=== PATIENT | female | born 2000 | race Caucasian/White ===

== ENCOUNTER 2023-12-09 13:47 | Outpatient (CLI) | payer BC, SELFPAY ==
--- NOTE | 2023-12-09 14:00 | CRLHL7_ITS ---
For Patients: As a result of the Century Cures Act, medical imaging exams and procedure reports are released immediately into your electronic medical record. You may view this report before your referring provider. If you have questions, please contact your health care provider. INDICATION: First trimester scan, establish dates. TECHNIQUE: Real-time breaux-scale imaging of the pelvis was performed. FINDINGS: Sonographic imaging demonstrates a single living intrauterine gestation. The embryo demonstrates a regular cardiac rate measuring 167 beats per minute. The embryo`s crown-rump length measurement of 1.8 cm corresponds to a gestational age of 8 weeks 2 days with a sonographic due date of 07/18/2024. There is a normal-appearing yolk sac. Minimal amount of free fluid in the pelvic cul-de-sac IMPRESSION: Normal first trimester OB ultrasound exam. Gestational age calculated at 8 weeks 2 days with a sonographic due date of 07/18/2024. Dictated by Darleen Carlson MD @ 12/09/2023 3:44:50 PM (Electronically Signed)
== END 2023-12-09 13:48 | disposition home or self-care (01) ==
LOC: US 13:48
PROVIDERS: Visit Provider Registered Nurse
DX: Z34.91 Encounter for supervision of normal pregnancy, unspecified, first trimester (principal); Z3A.08 8 weeks gestation of pregnancy
CPT/HCPCS: 76817; 82565; 82570; 84156; 84450; 84460; 84520; 86592; 86703; 86704; 86706; 86762; 86787; 86803; 86850; 86900; 86901; 87086; 87340; 87491; 87591

== ENCOUNTER 2024-03-04 11:06 | Outpatient (CLI) | payer BC, SELFPAY ==
--- NOTE | 2024-03-04 11:15 | CRLHL7_ITS ---
For Patients: As a result of the Century Cures Act, medical imaging exams and procedure reports are released immediately into your electronic medical record. You may view this report before your referring provider. If you have questions, please contact your health care provider. INDICATION: Evaluate anatomy. COMPARISON: 12/09/2023 TECHNIQUE: Real time breaux scale imaging of the fetus was performed as well as color Doppler analysis of the umbilical vessels. FINDINGS: Sonographic imaging demonstrates a single living intrauterine gestation. Fetus demonstrates a regular cardiac rate of 145 beats per minute. Fetus has a breech position. The placenta lies posteriorly without evidence of placenta previa. Edge of the placenta located 8.4 cm from the internal cervical os. Amniotic fluid volume appears normal. Single deepest vertical pocket: 3.7 cm. The cervix is closed and measures 3.4 cm in length. The composite ultrasound gestational age is calculated at 20 weeks 3 days with an estimated sonographic due date of 07/19/2024. The estimated weight is 356 grams which lies at the 40th %. The following biometric measurements were obtained: Biparietal diameter: 4.5 cm/19 weeks 3 days 11th% Head circumference: 17.4 cm/20 weeks 0 days 16th% Abdominal circumference: 15.8 cm/20 weeks 6 days 54th% Femur length: 3.3 cm/20 weeks 1 day 28th% The HC/AC ratio measures: 1.10 range (1.07-1.25) On anatomic survey, there is a normal appearance of the cavum septi pellucidi, cisterna magna and cerebellum. Bilateral choroid plexus cysts noted measuring 6 millimeters. The nose, lips, and facial profile appear normal. The cervical, thoracic and lumbar spine are well visualized and appear normal. Incomplete visualization of the sacrum. There is a normal four-chamber heart view and the left and right ventricular outflow tracts appear normal. The diaphragm and stomach appear normal. The kidneys and bladder also appear normal. There is a normal three-vessel cord and cord insertion site. The four extremities appear normal. IMPRESSION: Concordance of clinical and sonographic dating. Bilateral choroid plexus cysts measuring 6 millimeters. Incomplete visualization of the sacrum. Level 2 follow-up should be considered. Remainder of the anatomy appears normal. Dictated by Familia Dominguez MD @ 03/04/2024 12:17:13 PM (Electronically Signed)
== END 2024-03-04 11:07 | disposition home or self-care (01) ==
LOC: US 11:07
PROVIDERS: Visit Provider Advanced Practice Midwife
DX: Z34.92 Encounter for supervision of normal pregnancy, unspecified, second trimester (principal); O35.03X0 Maternal care for (suspected) central nervous system malformation or damage in fetus, choroid plexus cysts, not applicable or unspecified; Z3A.20 20 weeks gestation of pregnancy
CPT/HCPCS: 76805

== ENCOUNTER 2024-04-25 12:32 | Outpatient (CLI) | payer BC, SELFPAY | END 2024-04-25 12:33 | disposition home or self-care (01) | LOC: NFLDREF 05-03 07:51 | PROVIDERS: Visit Provider Obstetrics & Gynecology | DX: Z34.93 Encounter for supervision of normal pregnancy, unspecified, third trimester (principal); Z3A.28 28 weeks gestation of pregnancy | CPT/HCPCS: 86592 ==

== ENCOUNTER 2024-05-09 18:02 | Outpatient (CLI) | payer BC, SELFPAY ==
[2024-05-09 18:14] VITALS: BP 121/79; PULSE 114
[2024-05-09 18:29] VITALS: BP 127/76; PULSE 96
[2024-05-09 18:43] VITALS: BP 120/71; PULSE 90
--- NOTE | 2024-05-11 04:44 | PC.OBNST ---
NST Note NST Note Start: 05/09/24 18:05 Freq: ONCE Status: Discharge Protocol: Document 05/09/24 19:00 PORT (Rec: 05/09/24 19:21 PORT Desktop) NST Note 1 Para (# of births) 0 EDC 07/18/24 Gestational Age In Weeks & Days 30 Weeks & 0 Days Patient Presented with Complaint(s) of Other Other Complaints Visual disturbances and RUQ pain Reactive Yes Appropriate for Gestational Age Yes RN [place] RNC Date 05/09/24 Reactive Yes Appropriate for Gestational Age Yes FABIAN Leiva RN Date 05/09/24 OB NST charge Yes Complete NST Note via Write Note Yes The provider's electronic signature indicates the NST is reactive/appropriate for gestational age. *Note to provider: If an addendum is required, open the patient's chart and click on the note under the Nurse/Allied Health tab.
== END 2024-05-09 19:05 | disposition home or self-care (01) ==
LOC: OB OUT 18:02 → OB 18:02
PROVIDERS: Visit Provider Obstetrics & Gynecology
DX: O26.893 Other specified pregnancy related conditions, third trimester (principal); H53.9 Unspecified visual disturbance; R10.11 Right upper quadrant pain; Z3A.30 30 weeks gestation of pregnancy
CPT/HCPCS: 59025; G0463

== ENCOUNTER 2024-06-24 11:23 | Outpatient (CLI) | payer BC, SELFPAY ==
--- NOTE | 2024-06-24 11:30 | CRLHL7_ITS ---
For Patients: As a result of the Century Cures Act, medical imaging exams and procedure reports are released immediately into your electronic medical record. You may view this report before your referring provider. If you have questions, please contact your health care provider. INDICATION: Small for dates. TECHNIQUE: Ultrasound OB pelvis transabdominal limited. Real-time breaux-scale imaging of the fetus was performed as well as color Doppler and spectral Doppler analysis of the umbilical artery. COMPARISON: Obstetric ultrasound dated 03/04/2024. FINDINGS: Sonographic imaging demonstrates a single living intrauterine gestation. Fetus demonstrates a regular cardiac rate of 163 beats per minute. Fetus has a cephalic orientation. The placenta lies posteriorly. Amniotic fluid volume appears normal, with single deepest pocket of 4.9 cm. Biophysical profile documented as 11/11, as tube room supervisor indicates observation of gross body movements, tone, and respiratory activity. The following biometric measurements were obtained: Biparietal diameter: 8.6 cm. Head circumference: 31.9 cm. Abdominal circumference: 30.5 cm. Femur length: 6.9 cm. Detailed anatomic evaluation of the fetus was NOT performed. The composite ultrasound gestational age is calculated at 35 weeks, 1 day with an estimated sonographic due date of 07/28/2024. The weight is estimated at 2547 grams, the 15th percentile. The systolic/diastolic umbilical arterial ratio is calculated at 3.0, within normal limits. IMPRESSION.: 1. weight is estimated at 2547 grams, the 15th percentile. 2. Systolic/diastolic umbilical arterial ratio is calculated at 3.0, within normal limits. 3. Biophysical profile documented as 11/11. Dictated by Walter Sewell MD @ 06/24/2024 1:02:20 PM (Electronically Signed)
== END 2024-06-24 11:24 | disposition home or self-care (01) ==
LOC: US 11:24
PROVIDERS: Visit Provider Obstetrics & Gynecology
DX: O36.5930 Maternal care for other known or suspected poor fetal growth, third trimester, not applicable or unspecified (principal); Z3A.35 35 weeks gestation of pregnancy
CPT/HCPCS: 76816; 76819; 76820; 87081; 87653

== ENCOUNTER 2024-07-01 12:06 | Outpatient (CLI) | payer BC, SELFPAY ==
--- NOTE | 2024-07-01 12:15 | CRLHL7_ITS ---
For Patients: As a result of the Cures Act, medical imaging exams and procedure reports are released immediately into your electronic medical record. You may view this report before your referring provider. If you have questions, please contact your health care provider. OB ULTRASOUND LIMITED, 07/01/2024 CLINICAL HISTORY: IUGR (UA and RICHMOND). COMPARISON: 06/24/2024, 03/21/2025, 03/04/2024, 12/09/2023. LMP: 11/01/2023. TECHNIQUE: Real time breaux scale imaging of the fetus was performed transabdominal. FINDINGS: DILIA by LMP/US: 07/18/2024. GA: 37 weeks 4 days. GESTATION: Single. CERVIX: Not visualized. POSITIONING: Vertex. AMNIOTIC FLUID: 14.9 cm RICHMOND. 7.4 cm SDP. PLACENTA: Technique: TA. Placenta Position: Posterior. DOPPLERS: Heart Rate: 149 bpm. Umbilical Artery: 3.1 S/D. IMPRESSION: 1. Normal umbilical artery S/D ratio of 3.1. 2. Amniotic fluid RICHMOND 14.9 cm. Single deepest pocket 7.4 cm. Familia Dominguez M.D. Diagnostic Radiologist [email or web address] Transcribed: 11:39 am DW/Dictated by: Familia Dominguez MD @ 07/03/2024 8:51:00 PM (Electronically Signed)
== END 2024-07-01 12:07 | disposition home or self-care (01) ==
LOC: US 12:06
PROVIDERS: Visit Provider Obstetrics & Gynecology
DX: O36.5930 Maternal care for other known or suspected poor fetal growth, third trimester, not applicable or unspecified (principal); Z3A.37 37 weeks gestation of pregnancy
CPT/HCPCS: 76815; 76820

== ENCOUNTER 2024-07-10 16:16 | Inpatient (IN) | payer BC, SELFPAY ==
[2024-07-10] VITALS (8 sets, daily range): BP systolic 95–128; BP diastolic 53–83; PULSE 67–95; RESP 16; TEMP 36.4–36.7; O2SAT 98–99; BMI 30.9
--- NOTE | 2024-07-10 17:00 | P.LDBA_ITS ---
Subjective History of Present Illness Date Seen: 07/10/24 Narrative: Patient is being admitted to Labor and Delivery for IOL due to IUGR. She is a 24 year old at 38 6/7 weeks gestation. Her full history and physical was dictated by Dr. MINOR on 07/01/24. Please see this for details. No new concerns or complaints today. Specific Issues/Plans G 1 P 0 Life Partner: Shabbir Mi Baby: Girl! Gould H&P by JITENDRAP on 07/01/24 # growth restriction (dx on 06/24) EFW 14.8%, AC 9.3%, normal dopplers, SDP 4.9 cm Qweekly UA doppler, RICHMOND, and NST Q3-4 weeks growth (would not need another growth given delivery timing recommendation) Delivery recommended at 38-39 weeks. Induction of labor consent reviewed, signed and submitted for cervical ripening on 07/10/24 ([id number]) with a Cook catheter and Pitocin on 07/11/24 # Bilateral choroid plexus cysts. Spine not well-visualized d/t position. level 2 US - normal, no choroid plexus cysts - fyi pt has insurance coverage issue with this, encouraged her to reach out where we can provide a note to try to justify medical necessity with provider note and radiology impression NIPT - low risk for aneuploidy/carrier screen #Rubella non immune. Rec. PP vaccine. #Varicella non immune. Rec. PP vaccine. Flu: Declines Covid: Not vaccinated. Recommended. Declines Tdap: declines Mental Health: 05/27/2024 Hgb:06/10/24 GBS:06/24/24 neg H&P: Level 2 US 03/21: EFW 534g at 33%ile. Normal anatomy, no choroid plexus cysts and normal spine. Posterior placenta, no previa. Cx long/closed. MVP 4.9cm. 06/24/24: Vtx, EFW 14.8%, AC 9.3%, normal dopplers, SDP 4.9 cm 07/01/24: Vtx, RICHMOND 14.9cm, SDP 7.4cm, UA Doppler S/D ratio: 3.1 (normal). OB - Problem Based A/P Additional Plan (1) growth restriction: Status: Acute Plan 1. IOL due to IUGR, started with placement of cook catheter 60mL on each balloon. Patient tolerated procedure well. Will start IV Oxytocin later tonight at around 9:30pm per protocol. 2. GBS negative, no need for antibiotic prophylaxis. 3. Candidate for pain management as per preference and at patient request. 4. Continuous monitoring. OB Exam Physical Exam Vital signs: Pulse BP Pulse Ox 75 123/76 98 07/10/24 16:36 07/10/24 16:36 07/10/24 16:37 Detailed Labor and Delivery Exam Patient Gravid: Yes Dilation (cm): 1 Effacement (%): 75 Cervix position: mid Consistency: medium Tachysystole: No Fetus (Single) Station: -1 Amniotic Membrane Status: intact Heart Rate Baseline: 130 Monitor Accelerations: Present Monitor Decelerations: None Group Home Variability: Moderate (6-25)
[2024-07-10 17:37] LABS: Basophils Percent Auto 0.3 % (0.0-3.0); Eosinophils Percent Auto 0.2 % (0.0-7.0); Hematocrit 38.1 % (33.0-51.0); Hemoglobin* 12.3 gm/dL (12.0-16.0); Immature Granulocytes Pct Auto 0.3 %; Lymphocytes Percent Auto 13.7 % (20-44); Mean Corpuscular HGB Conc 32 gm/dL (32-36); Mean Corpuscular Hemoglobin 28 pg (26-34); Mean Corpuscular Volume 85 fL (80-100); Monocytes Percent Auto 4.8 % (0.0-11.0); Neutrophils Percent Auto 80.7 % (42.0-72.0); Platelet Count* 265 K/uL (140-440); RDW Coefficient of Variation % 13.9 % (11.5-15.5); Red Blood Count 4.46 m/uL (4.00-5.20); White Blood Count* 13.99 K/uL (4.50-11.00)
[2024-07-10 17:38] LABS: Slide Review Reflex No
[2024-07-10] MEDS: OXYTOCIN 30 unit/500 ML in NS 30 UNIT/500 ML BAG IVPB (21:18)
[2024-07-10] MEDS: LACTATED RINGERS 500 ML 500 ML 125 ML IV (21:19)
[2024-07-10] MEDS: MORPHINE 10 MG/ML inj IM (22:19)
[2024-07-10] MEDS: hydrOXYzine pamoate 25 MG CAPSULE 100 MG PO (22:20)
[2024-07-11] VITALS (47 sets, daily range): BP systolic 91–148; BP diastolic 54–77; PULSE 68–109; RESP 16; TEMP 36.2–36.9; O2SAT 92–100
[2024-07-11] MEDS: LACTATED RINGERS 500 ML 500 ML 125 ML IV ×2 (01:14→05:26)
--- NOTE | 2024-07-11 07:23 | P.OBPN_ITS ---
Subjective Time Seen by Provider: 07:15 Date Seen: 07/11/24 Narrative: s/p santa cath Objective Vital Signs: Last Vital Signs Temp 98.2 F 07/11/24 06:12 Pulse 71 07/11/24 06:29 Resp 16 07/11/24 06:12 BP 113/61 07/11/24 06:29 Pulse Ox 99 07/10/24 19:15 Pelvic Exam Dilation (cm): 4 Effacement (%): 75 Station: -1 Contractions Monitor mode: External Contraction pattern: Regular Contraction intensity: Mild Pitocin Rate (mU/min): 9 Assessment Assessment: induction ongoing Station: -1 Amniotic Membrane Status: AROM (0715 - clear fluid ) Heart Rate Baseline: 140 Clerical Administrative Assistant Variability: Moderate (6-25) Monitor Accelerations: Present Monitor Decelerations: None Labor Progress: - Patient consent to AROM. - AROM 0715 with clear fluid. Patient tolerated the procedure well. Maternal Status: - Continues to be comfortable Plan Plan: - Will continue titrating the Pitocin
[2024-07-11] MEDS: LACTATED RINGERS 1000 ML 1,000 ML 115 ML IV (09:21)
--- NOTE | 2024-07-11 11:59 | W.PM.VAGDEL1 ---
Procedure Delivery date: 07/11/24 Procedure Done: Global Intrapartal Events: Labor Induction Delivery augmentation: rupture of membranes and pitocin Delivery monitor: external uterine Route of delivery: Laceration description: Perineal - 2nd Degree Delivery repair: Vicryl Estimated blood loss (mL): 100 Narrative: Farzana is a 24 year-old admitted on 07/10/24 at 39 and 0/7 weeks gestation for medically indicated induction of labor due to growth restriction. GBS negative Labor Analgesia: Nitrous Gas during labor and delivery. 50 mcg of fentanyl and 15 cc of 1% lidocaine without epi used for laceration repair. Pitocin: Yes for induction of labor and active management of the 3rd stage. AROM: 07/11/24 at 0715, with clear fluid Complete: 07/11/24 at 1040 Pushing: involuntarily pushing at around 1040 heart tones during second stage were Cat I with early deceleration. At 1056 a viable female delivered in vertex OA presentation over intact via spontaneous vaginal delivery. The infant's body was delivered in the usual manner without difficulty. The was placed on maternal abdomen. The cord was clamped and cut after a 30-60 second delay. The nose and mouth were bulb suctioned. weight: pending. 8 at 1 minute and 9 at 5 minutes. Shoulder dystocia: None. Nuchal cord: None Placenta delivered spontaneously and complete at 1057 with a 3-vessel cord. Placenta examined and noted to be complete. Placenta was sent to pathology. The cervix and vagina were inspected for lacerations, and 2nd degree perineal was noted. Laceration(s): 2nd degree laceration, repaired with 2-0 Vicryl in continuos fashion Complications: None Cord gases: obtained/ not indicated Sponge and needles counts are correct. Placenta to pathology for the indication of growth restriction. Mother and were stable at the time of this note.
[2024-07-11] MEDS: LIDOCAINE 1 % PF 30 ML INJECTION (15:16)
[2024-07-12 02:15] VITALS: BP 108/68; PULSE 74; RESP 16; TEMP 36.5; O2SAT 96
[2024-07-12 04:25] VITALS: BP 104/67; PULSE 71; RESP 16; TEMP 36.9; O2SAT 97
[2024-07-12 06:52] LABS: Hemoglobin* 10.9 gm/dL (12.0-16.0)
--- NOTE | 2024-07-12 07:49 | PM.OBDSVD1 ---
DS: Providers Provider Date Seen: 07/12/24 Date of admission: 07/10/24 16:16 Primary care physician: Not a Local Provider Admitting Clinician: Mere Spear MD Attending Physician on discharge: Mere Spear MD Date of Discharge: 07/12/24 DS: Diagnosis Discharge Diagnosis (1) Lactating mother: Status: Acute (2) care following vaginal delivery: Status: Acute Exam Narrative: Exam Narrative: GENERAL APPEARANCE:? normal affect, alert, no distress? MOOD:? appropriate? CHEST:? clear to auscultation and percussion? HEART:? regular rate and rhythm? ABDOMEN:? soft, non-tender the uterine fundus is U/3 and is appropriate for the stage of recovery.? PERINEUM:? mild edema of the perineum, there is a 2nd degree perineal laceration that is healing well.? EXTREMITIES:? normal and no edema? Const: Vital Signs, click to edit/add: Vital Signs - 24 hr 07/11/24 08:36 07/11/24 08:36 07/11/24 10:33 Temperature 97.4 F L Pulse Rate 89 88 Pulse Rate [Pulse Oximeter] Respiratory Rate 16 Blood Pressure 122/77 111/57 L Blood Pressure [Le ft Arm] [facility] 11:05 07/11/24 11:06 07/11/24 11:11 Temperature Pulse Rate 98 Pulse Rate [Pulse Oximeter] Respiratory Rate Blood Pressure 148/69 H Blood Pressure [Le ft Arm] Pulse Oximetry 100 92 [facility] 07/[facility] 11:12 07/11/24 11:17 07/11/24 11:20 Temperature Pulse Rate 96 Pulse Rate [Pulse Oximeter] Respiratory Rate Blood Pressure 139/63 Blood Pressure [Le ft Arm] Pulse Oximetry 99 97 [facility] 07/[facility]/24 11:22 07/11/24 11:27 07/11/24 11:32 Temperature Pulse Rate Pulse Rate [Pulse Oximeter] Respiratory Rate Blood Pressure Blood Pressure [Le ft Arm] Pulse Oximetry 100 100 [facility] 07/[facility] 11:35 07/11/24 11:37 07/11/24 11:42 Temperature Pulse Rate 91 Pulse Rate [Pulse Oximeter] Respiratory Rate Blood Pressure 146/70 H Blood Pressure [Le ft Arm] Pulse Oximetry 100 100 Oxygen Delivery Me thod 07/11/24 11:47 07/11/24 11:50 07/11/24 11:52 Temperature Pulse Rate 90 Pulse Rate [Pulse Oximeter] Respiratory Rate Blood Pressure 137/63 Blood Pressure [Le ft Arm] Pulse Oximetry 100 100 Oxygen Delivery Me thod 07/11/24 11:57 07/11/24 12:02 07/11/24 12:05 Temperature Pulse Rate 87 Pulse Rate [Pulse Oximeter] Respiratory Rate Blood Pressure 130/60 Blood Pressure [Le ft Arm] Pulse Oximetry 100 100 Oxygen Delivery Me thod 07/11/24 12:07 07/11/24 12:07 07/11/24 12:12 Temperature 97.3 F L Pulse Rate Pulse Rate [Pulse Oximeter] Respiratory Rate Blood Pressure Blood Pressure [Le ft Arm] Pulse Oximetry 100 100 Oxygen Delivery Me thod 07/11/24 12:17 07/11/24 12:20 07/11/24 12:22 Temperature Pulse Rate 89 Pulse Rate [Pulse Oximeter] Respiratory Rate Blood Pressure 118/64 Blood Pressure [Le ft Arm] Pulse Oximetry 100 98 Oxygen Delivery Ca thod 07/11/24 12:27 07/11/24 12:32 07/11/24 12:34 Temperature Pulse Rate Pulse Rate [Pulse Oximeter] Respiratory Rate 16 Blood Pressure Blood Pressure [Le ft Arm] Pulse Oximetry 99 99 Oxygen Delivery Ca thod 07/11/24 12:35 07/11/24 12:37 07/11/24 12:42 Temperature Pulse Rate 93 Pulse Rate [Pulse Oximeter] Respiratory Rate Blood Pressure 119/62 Blood Pressure [Le ft Arm] Pulse Oximetry 99 99 Oxygen Delivery Ca thod 07/11/24 12:47 07/11/24 12:49 07/11/24 12:52 Temperature Pulse Rate 78 Pulse Rate [Pulse Oximeter] Respiratory Rate Blood Pressure 118/63 Blood Pressure [Le ft Arm] Pulse Oximetry 98 99 Oxygen Delivery Ca thod 07/11/24 12:57 07/11/24 16:11 07/11/24 21:15 Temperature 98.4 F 97.2 F L Pulse Rate Pulse Rate [Pulse Oximeter] 98 71 Respiratory Rate 16 16 Blood Pressure Blood Pressure [Le ft Arm] 120/73 119/72 Pulse Oximetry 98 95 [facility] Room Air 07/12/24 02:15 07/12/24 04:25 Temperature 97.7 F 98.4 F Pulse Rate Pulse Rate [Pulse Oximeter] 74 71 Respiratory Rate 16 16 Blood Pressure Blood Pressure [Le ft Arm] 108/68 104/67 Pulse Oximetry 96 97 Oxygen Delivery Me thod Room Air Room Air OB - DS: Summary Hospital Course Hospital Course: The patient is a 24 year old G 1 P 1 at 39.0 weeks gestation that was admitted to the [facility] on 07/10/24 for IOL for IUGR. She had an uncomplicated vaginal delivery. She delivered a viable female infant. She is breast feeding and denies concerns with how it is going. Encouraged her to see today before discharge. the patient has done well. Her pain is well controlled with current medications.? She has no new complaints.? Urinary output is adequate and she is voiding without difficulty.? Has a good appetite, is tolerating a general diet, is passing flatus, and has not yet had a bowel movement.? Has scant amount of rubra lochia.? She is ambulating well. She declines a prescription for ibuprofen as she has not used any since delivery. Discussed that she could use OTC ibuprofen and Tylenol PRN. She is planning to use condoms for PP contraception. We did also briefly discuss the Caya diaphragm. Peripartum Data delivery method: Vaginal Laceration description: Perineal - 2nd Degree complications: none [place] Infant Gender: Female Discharge Plan: Home Status at Discharge Functional status at discharge: independent ambulation Overall status at discharge: patient is progressing back to baseline Time Spent with Patient Time attestation: Total time spent providing and/or coordinating discharge services: Discharge Plan Discharge Disposition: Home, Self-Care Date of Admission: 07/10/24 16:16 Attending Provider on Discharge: Concetta Capone Consulting Providers: Libia Whalen Primary Care Provider: Provider,Not a Local Condition: Stable Anticipated Discharge Date/Time: 07/12/24 10:00 Discharge Medications: New docusate sodium 100 mg Capsule 100 mg PO DAILY Qty: 90 0RF Rx Instructions: Take 1-2 tablets daily as needed for constipation. Continued DHA 200 mg capsule 200 mg PO DAILY Discontinued ferrous sulfate 134 mg (27 mg iron) tablet 134 mg PO QMWF Qty: 30 0RF Discharge Orders: Discharge Order (Routine); Ordered 07/12/24 Ordered By: Concetta Capone Patient Education: OB Vaginal/Breast Feeding Additional Instructions: Discharge instructions were reviewed with the patient including signs and symptoms of infection and home going medications.? Lifting Restrictions: 20 pounds for 6? weeks? ?? Do not drive while taking narcotic pain meds.? Off Work or School for 6 weeks.? ?? Symptoms to report to doctor:? -Bleeding that saturates more than one pad per hour? -Passing clots larger than the size of a golf ball? -Pain not relieved by prescribed medication? -Fever above 100.4 degrees Fahrenheit? -A foul vaginal odor? -Difficulty in emotions, mood and functions? -Thoughts of hurting yourself and/or ? -Painful, reddened area in your breast? -Any drainage, redness or tenderness in your IV/epidural site? -Severe headache that doesn't improve after taking medications? -Changes in vision, including temporary loss of vision, blurred vision, and/or light sensitivity? -Upper abdominal pain (usually under ribs on the right side)? -Decrease in urination or painful, frequent urinating? -Chest pain? -Shortness of breath? -Tenderness or pain with redness and/swelling in the calf(s) of your leg? ?? Follow Up in clinic in 2 and 6 weeks.? ?? consultation services are available to all mothers and babies for the first year after delivery.? To make an appointment, please call [phone].? Activity Level: Activity as Tolerated Discharge Diet: Regular Follow Up Appointments: Provider,Not a Local [Primary Care Provider] - [facility] [Provider Group] Forms: Interhyp Info Instructions
[2024-07-12 08:27] VITALS: BP 131/73; PULSE 73; RESP 18; TEMP 36.8; O2SAT 97
[2024-07-12 12:24] LABS: Rapid Plasma Reagin (RPR) Reactive (Non Reactive)
[2024-07-14 09:43] LABS: Treponema pallidum AbTP-PA Non Reactive (Non Reactive)
== END 2024-07-12 17:25 | disposition home or self-care (01) | DRG 560 ==
PROVIDERS: Obstetrics & Gynecology; Admitting Provider Obstetrics & Gynecology; Visit Provider Obstetrics & Gynecology
DX: O70.1 Second degree perineal laceration during delivery (principal); O99.02 Anemia complicating childbirth; D64.9 Anemia, unspecified; Z3A.38 38 weeks gestation of pregnancy; Z37.0 Single live birth
CPT/HCPCS: 36415; 59200; 76815; 76820; 85018; 85025; 86592; 86593; 86780; 86850; 86900; 86901; 88307; A9270; C1726; J2003; J2270; J7120